=== PATIENT | male | born 1975 | race African-American/Black ===

== ENCOUNTER 2018-04-10 08:38 | Emergency (ER) | payer SELFPAY ==
[2018-04-10] MEDS: Metoprolol Tartrate 25 MG Tab PO ONE ×2 (08:54→10:15)
[2018-04-10 09:22] LABS: CHLORIDE,CL 104 mmol/L (98-107); SODIUM,NA 141 mmol/L (136-145)
--- NOTE | 2018-04-10 09:26 | EDM.PDOC ---
ED HPI GENERAL MEDICAL PROBLEM - General Chief Complaint: Upper Extremity Injury/Pain Stated Complaint: Left wrist pain Time Seen by Provider: 04/10/18 09:16 Source of Information: Reports: Patient History Limitations: Reports: No Limitations - History of Present Illness INITIAL COMMENTS - FREE TEXT/NARRATIVE: Patient comes to ER for work note due to persistent left wrist discomfort that started gradually yesterday. No specific injury. 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 Mild numbness left thumb/first finger. Missed work yesterday because of this. No other complaints. Left Wrist Pain Score (Numeric/FACES): 8 - Related Data Allergies Allergy/AdvReac Type Severity Reaction Status Date / Time No Known Allergies Allergy Verified 04/10/18 08:42 Home Meds: Home Meds Lisinopril 10 mg PO DAILY 04/10/18 [History] amLODIPine [Norvasc] 5 mg PO DAILY 04/10/18 [History] Past Medical History Cardiovascular History: Reports: Hypertension Social & Family History - Tobacco Use Smoking Status *Q: Never Smoker Second Hand Smoke Exposure: No - Caffeine Use Caffeine Use: Reports: Energy Drinks - Recreational Drug Use Recreational Drug Use: No Review of Systems - Review of Systems Review Of Systems: ROS reveals no pertinent complaints other than HPI. ED EXAM, GENERAL - Physical Exam Exam: See Below Exam Limited By: No Limitations General Appearance: Alert, WD/WN, No Apparent Distress Eye Exam: Bilateral Eye: EOMI, PERRL Ears: Normal External Exam Nose: No: Nasal Deformity, Nasal Swelling, Nasal Drainage Throat/Mouth: Normal Inspection, Normal Lips, Normal Voice, No Airway Compromise Head: Atraumatic, Normocephalic Neck: Normal Inspection, Supple Respiratory/Chest: No Respiratory Distress, Lungs Clear, Normal Breath Sounds, No Accessory Muscle Use Cardiovascular: Normal Peripheral Pulses, Regular Rate, Rhythm, No Edema, No Murmur Peripheral Pulses: 2+: Radial (L), Radial (R) GI/Abdominal: Normal Bowel Sounds, Soft, Non-Tender (Male) Exam: Deferred Rectal (Males) Exam: Deferred Back Exam: Normal Inspection Extremities: Normal Range of Motion, Normal Capillary Refill, Other (mild tenderness with palpation volar aspect left wrist. No nodules or crepitus noted. Left hand and fingers show full ROM. Neuro-vascularly intact at this time. No swelling/heat/rash noted. ). No: Pedal Edema Neurological: Alert, Oriented, CN II-XII Intact, Normal Cognition, Normal Gait, No Motor/Sensory Deficits Psychiatric: Normal Affect, Normal Mood Skin Exam: Warm, Dry, Intact, Normal Color Course - Vital Signs Last Recorded V/S: Last Vital Signs Temp 36.6 C 04/10/18 08:39 Pulse 84 04/10/18 08:54 Resp 18 04/10/18 08:39 BP 219/164 H 04/10/18 08:54 Pulse Ox 98 04/10/18 08:39 - Orders/Labs/Meds Orders: Active Orders 24 hr Category Date Time Status Wrist 2V Lt [CR] Stat Exams 04/10/18 08:48 Taken CBC WITH AUTO DIFF [HEME] Stat Lab 04/10/18 08:49 Ordered CMP [COMPREHENSIVE METABOLIC PN,CMP] [CHEM] Stat Lab 04/10/18 08:49 Ordered UA W/MICROSCOPIC [URIN] Stat Lab 04/10/18 08:49 Ordered Meds: Medications Discontinued Medications Generic Name Dose Route Start Last Admin Trade Name Isabelle PRN Reason Stop Dose Admin Metoprolol Tartrate 25 mg 04/10/18 08:48 04/10/18 08:54 Lopressor PO 04/10/18 08:49 25 mg ONETIME ONE Administration - Radiology Interpretation Free Text/Narrative:: Wrist xray showed no acute abnormalities/fractures. - Re-Assessments/Exams Free Text/Narrative Re-Assessment/Exam: Suspect overuse injury regarding left wrist pain. Will place patient in prefab velcro wrist splint for support and protection. Work restrictions for next few days--to avoid use of left hand. BP noted to be significantly elevated during intake evaluation. Patient had BP of 219/164. When asked, he said that his blood pressure has been elevated like this before multiple times. Was started on Lisinopril 5mg by one ER MD but did not follow up and establish primary care provider. Is originally from [facility], and said that in [place] country people do not usually go to the doctor and follow up/continuance of care is not really a thing there. Has been hit/miss with Lisinopril and had not taken it today. Does not check BPs on own. Given Lopressor initially. Minimal change noted one hour later. Given Lopressor and Lisinopril and observed. Patient denied history of headaches/neuro changes/acute vision changes. Does wear glasses and has not seen an eye provider for awhile. Thinks he needs a new prescription. No chest pain. Labs performed. UA overall unremarkable as was CMP. CBC did show polycythemia, microcytosis. Patient says he stays well hydrated. BP by machine improved but continued to be elevated. Noted to be 141/118 by palpation. AT this time patient received one additional Lisinopril and was discharged home. Close follow up with clinic advised as he will need additional workup for the above issues, including possibility of secondary hypertension. He is to fast after midnight as it is anticipated that the clinic will wish to perform lipid testing in AM. Has appointment at 8:30. He is also to make an appointment to have an updated eye exam in order to rule out any retinal effects from the persistent hypertension. Departure - Departure Time of Disposition: 12:15 Disposition: Home, Self-Care 01 Condition: Good Clinical Impression: Left wrist pain, RBC microcytosis, Polycythemia Hypertension Qualifiers: Hypertension type: essential hypertension Qualified Code(s): I10 - Essential ( primary) hypertension - Discharge Information *PRESCRIPTION DRUG MONITORING PROGRAM REVIEWED*: Not Applicable *COPY OF PRESCRIPTION DRUG MONITORING REPORT IN PATIENT LATISHA: Not Applicable Instructions: Wrist Pain, Adult, [id number], Managing Your Hypertension, How to Take Your Blood Pressure, [id number] Referrals: Jean-Pierre Deng MD [Primary Care Provider] - Additional Instructions: Wear wrist splint for comfort and protection of wrist. Follow up tomorrow at scheduled appointment at clinic in regards to your blood pressure. It is at 8:30 in the morning. Do not have anything to eat after midnight tonight so that you are fasting in the morning and can have additional blood tests performed. It is ok to drink water. You do not have to take today's blood pressure medication dose. Follow up in the ER if you have sudden worsening problems such as chest pain or bad headache. - My Orders Last 24 Hours: My Active Orders 04/10/18 08:48 Wrist 2V Lt [CR] Stat 04/10/18 08:49 CBC WITH AUTO DIFF [HEME] Stat CMP [COMPREHENSIVE METABOLIC PN,CMP] [CHEM] Stat UA W/MICROSCOPIC [URIN] Stat - Assessment/Plan Last 24 Hours: My Active Orders 04/10/18 08:48 Wrist 2V Lt [CR] Stat 04/10/18 08:49 CBC WITH AUTO DIFF [HEME] Stat CMP [COMPREHENSIVE METABOLIC PN,CMP] [CHEM] Stat UA W/MICROSCOPIC [URIN] Stat
[2018-04-10] MEDS: Lisinopril 5 MG Tab PO ONE ×2 (10:17→12:04)
== END 2018-04-10 12:15 | disposition home or self-care (01) ==
LOC: LL.ED 08:38
DX: M25.532 Pain in left wrist (principal); I10 Essential (primary) hypertension; D75.1 Secondary polycythemia
CPT/HCPCS: 36415; 73100-LT; 80053; 81001; 83735; 85025; 99284; A9270-GY